=== PATIENT | male | born 1985 | race Caucasian/White ===

== ENCOUNTER → 2021-05-19 | Day surgery (SDC) | payer OTHER ==
[~2021-05-19] MED LIST: LIDOCAINE 1%/EPI 1:100,000 20 ML VIAL. INJ ONE; LIDOCAINE 1%/EPI 1:100,000 20 ML VIAL. ONE
[2021-05-19 11:02] VITALS: BP 129/77
--- NOTE | 2021-05-19 11:49 | PDOC1 ---
History and Physical Date of Admission Date of Admission DATE: 05/19/21 TIME: 11:46 Identification/Chief Complaint Chief Complaint Complains of subcutaneous masses on his abdomen right side Source Source: Chart review, Patient History of Present Illness History of Present Illness Patient is a 35-year-old male complains of nodules in the right midabdomen in the subcutaneous space been present for a number years, more uncomfortable and larger the last several months Past Medical History Cardiovascular: No pertinent hx Pulmonary: No pertinent hx GI: No pertinent hx Heme/Onc: No pertinent hx Hepatobiliary: No pertinent hx Psych: No pertinent hx Rheumatologic: No pertinent hx Infectious disease: No pertinent hx ENT: No pertinent hx Renal/: No pertinent hx Endocrine: No pertinent hx Dermatology: No pertinent hx Past Surgical History Past Surgical History: Tonsillectomy, Other (Vasectomy) Family History Family History: No Significant Social History Smoke: No ALCOHOL: none Drugs: None Current Medications Current Medications Current Medications Lidocaine/ Epinephrine (LIDOCAINE 1%-EPI 1:100,000 Multi-Dose) 20 ml STK-MED ONCE .ROUTE ; Start 05/19/21 at 10:44; Stop 05/19/21 at 10:44; Status DC Lidocaine/ Epinephrine (LIDOCAINE 1%-EPI 1:100,000 Multi-Dose) 20 ml STK-MED ONCE INJ Last administered on 05/19/21at 11:30; Start 05/19/21 at 11:30; Stop 05/19/21 at 11:31; Status DC Allergies Allergies: Coded Allergies: No Known Drug Allergies (Unverified , 05/19/21) ROS General: No: Chills, Night Sweats, Fatigue, Malaise, Appetite, Other PSYCHOLOGICAL ROS: No: Anxiety, Behavioral Disorder, Concentration difficultie, Decreased libido, Depression, Disorientation, Hallucinations, Hostility, Irritablity, Memory difficulties, Mood Swings, Obsessive thoughts, Physical abuse, Sexual abuse, Sleep disturbances, Suicidal ideation, Other Eyes: No Blurry vision, No Decreased vision, No Double vision, No Dry eyes, No Excessive tearing, No Eye Pain, No Itchy Eyes, No Loss of vision, No Photophobia, No Scotomata, No Uses contacts, No Uses glasses, No Other HEENT: No: Heacaches, Visual Changes, Hearing change, Nasal congestion, Nasal discharge, Oral lesions, Sinus pain, Sore Throat, Epistaxis, Sneezing, Snoring, Tinnitus, Vertigo, Vocal changes, Other ALLERGY AND IMMUNOLOGY: No: Hives, Insect Bite Sensitivity, Itchy/Watery Eyes, Nasal Congestion, Post Nasal Drip, Seasonal Allergies, Other Hematological and Lymphatic: No: Bleeding Problems, Blood Clots, Blood Transfusions, Brusing, Night Sweats, Pallor, Swollen Lymph Nodes, Other ENDOCRINE: No: Breast Changes, Galactorrhea, Hair Pattern Changes, Hot Flashes, Malaise/lethargy, Mood Swings, Palpitations, Polydipsia/polyuria, Skin Changes, Temperature Intolerance, Unexpected Weight Changes, Other Breast: No New/Changing Breast Lumps, No Nipple changes, No Nipple discharge, No Other Respiratory: No: Cough, Hemoptysis, Orthopnea, Pleuritic Pain, Shortness of breath, SOB with excertion, Sputum Changes, Stridor, Tachypnea, Wheezing, Other Cardiovascular: No Chest Pain, No Palpitations, No Orthopnea, No Paroxysmal Noc. Dyspnea, No Edema, No Lt Headedness, No Other Gastrointestinal: Yes Other (Subcutaneous abdominal mass) Genitourinary: No Dysuria, No Frequency, No Incontinence, No Hematuria, No Retention, No Discharge, No Urgency, No Pain, No Flank Pain, No Other, No , No , No , No , No , No , No Musculoskeletal: No Gait Disturbance, No Joint Pain, No Joint Stiffness, No Joint Swelling, No Muscle Pain, No Muscular Weakness, No Pain In:, No Swelling In:, No Other Neurological: No Behavorial Changes, No Bowel/Bladder ControlChng, No Confusion, No Dizziness, No Gait Disturbance, No Headaches, No Impaired Coord/balance, No Memory Loss, No Numbness/Tingling, No Seizures, No Speech Problems, No Tremors, No Visual Changes, No Weakness, No Other Skin: No Dry Skin, No Eczema, No Hair Changes, No Lumps, No Mole Changes, No Mottling, No Nail Changes, No Pruritus, No Rash, No Skin Lesion Changes, No Other, No Acne Physical Exam General: Alert, Oriented X3, Cooperative, No acute distress HEENT: Atraumatic, PERRLA, EOMI Lungs: Clear to auscultation, Normal air movement Heart: RRR, no murmurs Abdomen: Normal bowel sounds, Soft, No tenderness, Other (Palpable subcutaneous mass right side x2) Rectal Exam: not examined Extremities: No edema Skin: No significant lesion Neuro: Normal speech Vitals Vitals Vital Signs Date Time Temp Pulse Resp B/P (MAP) Pulse Ox O2 Delivery O2 Flow Rate FiO2 05/19/21 11:02 87 20 69 VTE Prophylaxis Ordered VTE Prophylaxis Devices: No VTE Pharmacological Prophylaxi: No Assessment/Plan Assessment/Plan Abdominal subcutaneous masses plan excision Justifications for Admission Other Justification BUBBA DUNHAM MD May 19, 2021 11:49
--- NOTE | 2021-05-19 11:51 | PDOC4 ---
Operative Note Operative Note Date: May 192021 at 11:49 AM Preoperative diagnosis subcutaneous abdominal mass x2 Postoperative diagnosis: Same Procedure: Excision of abdominal masses Surgeon: Thomas Specimen abdominal masses Dictation. Patient is a 35-year-old male is complaining of subcutaneous abdominal masses on the right side. The procedure of excision was explained to the patient detail was benefits were also discussed occluding bleeding infection alternatives this procedure also discussed with the patient who seemed to understand and gave a verbal written consent to have procedure performed. Patient was taken to the minor's room placed in the supine position his abdomen was prepped and draped usual sterile fashion using ChloraPrep. Area over the masses were injected with 1% lidocaine with epinephrine. Once these were anesthetized and incision was made 15 blade scalpel and a lipomatous mass was was excised sharply and sent for pathology the first mass was 1.5 x 1.5 cm with negative with no margin the second mass was 1. 0 x 1.0 cm with no margin. Wounds were closed with 4 subcuticular Monocryl Mastisol Steri-Strips and island dressing were applied. Patient tolerated procedure well was discharged home in stable condition all sponge instrument needle counts listed as correct estimated blood loss 5 mL BUBBA DUNHAM MD May 19, 2021 11:51
--- NOTE | 2021-05-19 11:52 | DISCH ---
DISCHARGE INSTRUCTIONS Condition on Discharge Condition on Discharge: Stable Activity After Discharge Activity Instructions for Disc: Resume previous activity Diet after Discharge Diet after Discharge: Regular Wound Incision Care Other wound/incision instructi: Gretel shower in 24 hours Contacting the DRCory after DC Call your doctor for: If your condition worsens Follow-Up Follow up with: Dr. Dunham in 2-week BUBBA DUHNAM MD May 19, 2021 11:52
--- NOTE | 2021-05-20 18:28 | PATHOLOGY ---
[facility] Accession Number: [id number] . 01 Material submitted: . abdomen - ABDOMINAL LIPOMAS X2 . 02 Diagnosis: Segments (2) of fibroadipose tissue, abdomen: - Lipomas, one of which shows focal features of angiolipoma. LBQ 05/20/2021 1541 Local . 02 Comment: There is no evidence of malignancy. (JPM/db; 05/20/2021) . 02 Electronically signed: . Yang Bernard MD, Pathologist NPI- [id number] . 01 Gross description: . The specimen is received in formalin, labeled "Black, Nixon, abdominal lipomas x2" and consists of two previously partially disrupted smith-pink and yellow segments of rubbery fatty tissue measuring 1.6 x 1.2 x 0.8 cm and 1.8 x 1.0 x 0.6 cm). Sectioning reveal a yellow fatty appearing cut surface. The specimen is submitted entirely in cassettes A1-A4. ([facility]; 05/19/2021) DKA/DKA 05/20/2021 1540 Local . 02 Pathologist provided ICD-10: D17.1 . 02 CPT . 668784 Specimen Comment: A courtesy copy of this report has been sent to [phone] Specimen Comment: Report sent to Specimen Comment: A duplicate report has been generated due to demographic updates. Performed at: 01 [facility] [address], [place] [id number] MD Azam Cui MD Phone: [phone] Performed at: 02 [facility] [address] [place], [place] [id number] MD Yang Bernard MD Phone: [phone]
== END | disposition home or self-care (01) ==
LOC: SURG 10:13
PROVIDERS: ATTEND Surgery
DX: D17.1 Benign lipomatous neoplasm of skin and subcutaneous tissue of trunk (principal); Z79.899 Other long term (current) drug therapy
CPT/HCPCS: 22902; 88304; J3490